=== PATIENT | female | born 1955 | race Caucasian/White ===

== ENCOUNTER 2023-12-17 16:00 | Outpatient (RCR) | payer MEDICARE, SELFPAY | END 2024-01-13 16:35 | disposition home or self-care (01) | LOC: PT 16:00 | PROVIDERS: Visit Provider Orthopaedic Surgery Adult Reconstructive Orthopaedic Surgery | DX: M17.12 Unilateral primary osteoarthritis, left knee (principal) | CPT/HCPCS: 97010; 97014; 97035; 97110; 97112; 97163; 97164; 97530; G0283 ==

== ENCOUNTER 2024-07-30 10:41 | Outpatient (CLI) | payer MEDICARE, SELFPAY ==
[2024-07-30 09:28] VITALS: BMI 32.4
--- NOTE | 2024-07-30 10:50 | CA_ITS ---
APPROVED REPORT EXAM: Comprehensive 2D, Doppler, and color-flow Echocardiogram Labor Delivery Specialist: Christy Lovell RVT Ht: 5 ft 7 in Wt: 207lbs BSA: 2.05 BP: 115/78 mmHg Indications: MURMUR,ABN EKG,PRE-OP,EDEMA,SOA,HX BREAST CA 2D Dimensions LA Volume 33.80 mL LA Volume Index 16.49 mL/m2 (M/F) 16-34 M-Mode Dimensions RVDd 3.27 cm (0.9-2.6) LA Diam 3.60 cm (1.9-4.0) LVDd 4.07 cm (3.5-5.7) LVDs 2.62 cm (3.5-5.7) IVSd 0.53 cm (0.6-1.1) PWd 0.91 cm (0.6-1.1) EF (Teich) 65.60% FS 35.60% EDV (Teich) 72.90 mL TAPSE 2.86 (<1.7) ESV (Teich) 25.10 mL LV Diastology E Decel Time 267 (160-240 msec) E/A Ratio 0.8 Aortic Valve SCOTT Index 1.18 cm2/m2 AoV Peak All. 187.0 (50-130 cm/s) AI PHT 885.00 ms AO Peak GR. 14.00 mmHg AO Mean GR. 7.90 (<5 mmHg) AO VTI 39.7 (18-25 cm) SCOTT (VTI) 2.47 (2.5-4.5 cm2) Mitral Valve MV E Max All. 98.0 (40-130 cm/s) MV A Velocity 117.0 (40-130 cm/s) E/A Ratio 0.84 MV PHT 78.0 ms Pulmonary Valve PV Peak Velocity 92.0 (50-150 cm/s) Tricuspid Valve TR P. Velocity 255.00 cm/s RAP Estimate 10.00 mmHg RVSP 36.10 mmHg Left Ventricle The left ventricle is normal size. The left ventricular systolic function is normal. The left ventricular ejection fraction is within the normal range. There is increased LV wall thickness. There is normal LV segmental wall motion. Transmitral Doppler flow pattern suggests impaired LV relaxation. LVEF is 65%. Right Ventricle The right ventricle is normal size. The right ventricular systolic function is normal. Atria The left atrium size is normal. The right atrium size is normal. There is no Doppler evidence of interatrial shunt. Aortic Valve Aortic valve is mildly thickened. There is no aortic valvular stenosis. Mild to moderate aortic regurgitation. Mitral Valve The mitral valve is normal in structure. Trace mitral regurgitation. Tricuspid Valve Tricuspid valve is grossly normal in structure and function. Mild tricuspid regurgitation. RVSP is 25-30 mmHg. Pulmonic Valve The pulmonary valve is normal in structure. Trace pulmonic regurgitation. Great Vessels The aortic root is normal in size. The ascending aorta is normal in size. IVC is normal in size and collapses >50% with inspiration. Pericardium There is no pericardial effusion. Other Information Study Quality: Fair Conclusion Normal biventricular systolic function. Mild to moderate AI. Mild TR. Electronically signed by : Katherine Hahn MD 08/03/2024 15:38:12
--- NOTE | 2024-07-30 11:24 | CT_ITS ---
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 A noncontrast coronary calcium scan was performed. A CT attenuation threshold of 130 Hounsfield units (HU) was used for the detection of calcium in contiguous voxels of 1 sq mm in area to be counted as individual lesions. Bolus tracking in the ascending aorta with a threshold of 180 HU was performed. Immediately afterwards, ECG synchronized cardiac CT was then performed from the cardiac base to apex using retrospective gating with ECG tube current modulation. A total of 85 mL of Isovue 370 mg/mL contrast medium was administered at 5 mL/sec followed by a saline flush using a biphasic injection protocol. A tube voltage of 120 KVp was used. The patient received the following medications prior to the cardiac CT. 50 mg of oral metoprolol 0.8 mg of sublingual nitroglycerin The average heart rate at the time of acquisition was 50 bpm and regular. Image Reconstruction Transaxial images were reconstructed at 0.67 mm slide thickness. Data was reviewed interactively on an advanced workstation capable of 2 and 3-dimensional displays in all conventional reconstruction formats, including multiplanar reformations, maximum intensity projections, curved multiplanar reformations, and volume rendered reconstructions. When applicable, selected routine images describing the relevant coronary anatomy and pathology were saved and sent to PACS. Complications None Technical Quality Overall image quality was good. Coronary artery opacification was adequate. Total DLP (Dose-Length Product) is 1006.6 mGy-cm. The reported value represents the total of one or more individual components during the CT acquisition of this date and at this time, and as such, the same value may appear in more than one CT report depending on the interpreting/reporting physicians. COMPARISON None FINDINGS CT Coronary Calcium Scoring LMA (Left Main Artery) = 7 LAD (Left Anterior Descending) = 14 LCX (Left Coronary Circumflex) = 0 RCA (Right Coronary Artery) = 0 Total Calcium Score = 21 using the AJ-130 method. The observed calcium score of 21 is at 61st percentile for subjects of the same age, sex, and race/ethnicity. The interpretation of the calcium heart score is based on the following continuum*: 0 = no calcified plaque detected (risk of coronary artery disease is very low ??? less than 5%) 1-10 = calcium detected in extremely minimal levels (risk of coronary diseases is still low ??? less than 10%) 11-100 = mild levels of plaque detected with certainty (mild or minimal narrowing of heart arteries is likely) 101-400 = definite,at least moderate levels of plaque detected (relatively high risk of a heart attack within 3-5 years) >401-999 = extensive levels of plaque detected (high risk of heart attack, high levels of vascular disease are present, high likelihood of at least one significant coronary narrowing) *The calcium heart score quantifies the burden of coronary calcification/plaque in the coronary arteries. The calcium heart score is not able to evaluate the presence or burden of non-calcified (i.e. soft) plaque. There is mild calcification in the aortic valve. Coronary CT Angiography The coronary arterial system is left dominant. Quantitative Stenosis Grading: Left Main (LM): The left main originates normally from the left sinus of Valsalva. The LM trifurcates into the left anterior descending artery, ramus intermedius, and left circumflex artery. There is mild calcified plaque in the LM, with no luminal stenosis. Left Anterior Descending (LAD) and Diagonal Branches: The LAD gives off 3 diagonal branch(es). There is mild calcification in the proximal LAD segment, with no luminal stenosis. There is no evidence of LAD-myocardial bridge. Ramus-intermedius (RI): The RI is patent. Left Circumflex (LCX) and Obtuse Marginals (OM): The LCX gives off 2 Obtuse Marginal (OM) branch(es). The LCX and its branches are patent with no evidence of atherosclerosis. Right Coronary Artery (RCA): The RCA originates normally from the right sinus of Valsalva. The RCA and its branches are patent with no evidence of atherosclerosis. Non-Coronary Cardiac Findings: Analysis of the left ventricular (LV) structure and function was performed after 3-D reconstruction of the LV from axial images, with user-corrected automatic contouring for assessment of LV volumes and user-defined reconstruction from oblique planes for measurement of 3-D cardiac structure and function. -The left ventricle systolic function is normal. -There is no left atrial appendage filling defect. Two right pulmonary veins and two left pulmonary veins drain normally into the left atrium. -No pericardial thickening or calcification. -Central and branch pulmonary arteries in the [id number] are unremarkable. -Thoracic aorta within the visualized thoracic aortic-branches in the [id number] is unremarkable. Extracardiac Structures Hiatal hernia is incidentally noted. IMPRESSION -Presence of coronary calcification with an Agatston score = 21 using the AJ-130 method. -The observed calcium score of 21 is at 61st percentile for subjects of the same age, sex, and race/ethnicity. -No evidence of significant flow-limiting atherosclerosis of the coronary arteries. -CAD-RADS 1. Management recommendations per ACC/AHA guidelines*, as clinically appropriate. -Hiatal hernia is incidentally noted. *Recommendations: CAD RADS 0: Reassurance. Consider non-atherosclerotic causes of chest pain. CAD RADS 1: Consider non-atherosclerotic causes of chest pain. Consider preventive therapy and risk factor modification. CAD RADS 2: Consider non-atherosclerotic causes of chest pain. Consider preventive therapy and risk factor modification, particularly for patients with nonobstructive plaque in multiple segments. CAD RADS 3: Consider further functional testing. Consider symptom-guided anti-ischemic and preventive pharmacotherapy as well as risk factor modification per published guideline statements. CAD RADS 4A: Consider further functional testing or invasive coronary angiography with revascularization per published guideline statements. Consider symptom-guided anti-ischemic and preventive pharmacotherapy as well as risk factor modification per published guideline statements. CAD RADS 4B: Invasive coronary angiography recommended with revascularization per published guideline statements. Consider symptom-guided anti-ischemic and preventive pharmacotherapy as well as risk factor modification per published guideline statements. CAD RADS 5: Consider invasive angiography and/or viability assessment with revascularization per published guideline statements. Consider symptom-guided anti-ischemic and preventive pharmacotherapy as well as risk factor modification per published guideline statements. CRITICAL RESULT None COMMUNICATION Per this written report The coronary and cardiac findings of this CCTA were reviewed, reported, and signed by Erasto Hahn MD (Fraud Analyst) Conclusion Electronically signed by : Katherine Hahn MD 08/03/2024 15:46:33
[2024-07-30 11:39] VITALS: BMI 31.9
[2024-07-30 11:50] VITALS: BP 120/71; PULSE 68; RESP 18; O2SAT 100
[2024-07-30 11:56] VITALS: PULSE 71
[2024-07-30] MEDS: METOPROLOL TARTRATE 50MG TABLET PO (11:57)
[2024-07-30 12:04] LABS: Chloride 103 mmol/L (98-107); Sodium 139 mmol/L (136-145)
[2024-07-30 12:05] LABS: Potassium 3.9 mmoL/L (3.5-5.1)
[2024-07-30 12:07] LABS: Blood Urea Nitrogen 12 mg/dl (7-17); Creatinine Clearance Estimated 80 mL/min (50-200); Estimated Glomerular Filt Rate 100 ml/min (>60); GFR (African American) 121 ML/MIN (>60)
[2024-07-30 12:08] LABS: Anion Gap 11.9 mEq/L (5-15); Calcium 9.3 mg/dl (8.4-10.2); Carbon Dioxide 28 mmol/L (22.0-30.0); Glucose 91 mg/dl (74-100)
[2024-07-30 12:36] VITALS: BP 127/88; PULSE 61; O2SAT 100
[2024-07-30] MEDS: NITROGLYCERIN 0.4MG SL TABLET SL (12:37)
[2024-07-30 12:39] VITALS: BP 127/80; PULSE 60; O2SAT 100
[2024-07-30] MEDS: 0.9 % SODIUM CHLORIDE 50 ML VIAL IV (12:51)
[2024-07-30] MEDS: IOPAMIDOL-370 (76%);100ML BOTTLE 85 ML IV (12:51)
[2024-07-30] MEDS: SODIUM CHLORIDE 0.9% 10ML SYR (RAD ONLY) 10 ML IV (12:51)
== END 2024-07-30 13:00 | disposition home or self-care (01) ==
PROVIDERS: PCP Nurse Practitioner Family; Visit Provider Physician Assistant
DX: I35.1 Nonrheumatic aortic (valve) insufficiency (principal); I36.1 Nonrheumatic tricuspid (valve) insufficiency; R01.1 Cardiac murmur, unspecified; R94.31 Abnormal electrocardiogram [ECG] [EKG]; Z82.49 Family history of ischemic heart disease and other diseases of the circulatory system
CPT/HCPCS: 75574; 80048; 93306; Q9967

== ENCOUNTER 2024-08-26 09:00 | Outpatient (RCR) | payer MEDICARE, SELFPAY | END 2024-08-26 23:59 | disposition home or self-care (01) | LOC: PT 09:00 | PROVIDERS: PCP Nurse Practitioner Family; Visit Provider Orthopaedic Surgery Adult Reconstructive Orthopaedic Surgery | DX: M25.562 Pain in left knee (principal); Z96.652 Presence of left artificial knee joint | CPT/HCPCS: 97014; 97110; 97116; 97140; 97163; 97530; G0283 ==

== ENCOUNTER 2024-09-16 09:00 | Outpatient (RCR) | payer MEDICARE, SELFPAY | END 2024-09-21 08:16 | disposition home or self-care (01) | LOC: PT 09:00 | PROVIDERS: PCP Nurse Practitioner Family; Visit Provider Orthopaedic Surgery Adult Reconstructive Orthopaedic Surgery | DX: Z98.890 Other specified postprocedural states (principal) | CPT/HCPCS: 97014; 97110; 97530; G0283 ==

== ENCOUNTER 2025-03-12 08:42 | Outpatient (CLI) | payer MEDICARE, SELFPAY ==
--- OUTSIDE RECORDS SUMMARY | 2025-03-12 08:45 | XMS_ITS | Clinical Summary ---
[facility] Address [address] [place] [address] Care Team Providers Care Machining Department Supervisor Name Role Phone Martha White GUN PERFORATOR Primary Care Provider [phone] Social History Tobacco Use Types Packs/Day Years Used Date Smoking Tobacco: Never Assessed Comments Unknown Sex and Gender Information Value Date Recorded Sex Assigned at Not on file Legal Sex Female 3:11 PM EST Gender Identity Not on file Sexual Orientation Not on file Plan of Treatment Health Maintenance Due Date Last Done Comments DXA SCAN 1957 TDAP/TD VACCINES (1 - Tdap) 1976 MAMMOGRAM 1997 COLOGUARD 2002 COLON CANCER SCREENING 5 YEA R SIGMOIDOSCOPY [address] COLONOGRAPHY 2002 FECAL OCCULT BLOOD TEST 2002 FIT Testing (1 year) 2002 Pneumococcal Vaccine 50+ (1 of 1 - PCV) 2007 ZOSTER VACCINE (1 of 2) 2007 ANNUAL WELLNESS VISIT 07/27/2024 HEPATITIS C SCREENING 07/27/2024 COVID-19 Vaccine ( - 2024- season) 03/01/202511/2020 INFLUENZA VACCINE 03/31/2025 COLONOSCOPY 09/12/2032 09/12/2022, 03/02, 09/13/2014 COLORECTAL CANCER SCREENING 09/12/2032 Insurance MEDICARE ADVANTAGE HMO NON PAR MEDICARE A & B Care Teams Machining Department Supervisor Relationship Specialty Start Date End Date Martha White APRN [address] [place] [address] PCP - General Family Medicine 07/28/24
--- NOTE | 2025-03-12 09:00 | XR_ITS ---
FINAL REPORT TECHNIQUE: Bone densitometry calculations of the lumbar spine and bilateral hips were obtained. CLINICAL HISTORY: Evaluation for continuince of prolia COMPARISON: None FINDINGS: Using L1-4, the bone mineral density of the spine is 0.997 g/cm2, corresponding to T-score of -0.5 and a Z score of 1.5. This is within the range of normal. Using the left hip, the bone mineral density of the femoral neck is 0.696 g/cm2, corresponding to a T-score of -1.4 and a Z-score of 0.3. This is within the range of osteopenia. Using the right hip, the bone mineral density of the femoral neck is 0.699 g/cm?, corresponding to a T-score of -1.4 and a Z-score of 0.3. This is within the range of osteopenia. NOTE: T-score: Standard deviation compared with peak bone mass of young adult mean. *Following the recommendations of the International Society of Bone densitometry, classification of hip BMD is based on the lower of two T-scores; total hip or femoral neck. IMPRESSION: 1. Bone mineral density of the lumbar spine within the range of normal. 2. Bone mineral density of the bilateral femoral necks within the range of osteopenia. Reviewed, Interpreted and Dictated by Yun Marshall MD Transcribed by Val Mcbride Authenticated and [facility]
== END 2025-03-12 23:59 | disposition home or self-care (01) ==
LOC: RAD 08:42
PROVIDERS: PCP Physician Assistant Surgical; Visit Provider Internal Medicine Medical Oncology
DX: M85.88 Other specified disorders of bone density and structure, other site (principal); Z79.620 Long term (current) use of immunosuppressive biologic; Z85.3 Personal history of malignant neoplasm of breast
CPT/HCPCS: 77080